=== PATIENT | male | born 1960 | race Caucasian/White ===

== ENCOUNTER 2025-02-27 09:23 | Outpatient (CLI) | payer MEDICARE, BC, SELFPAY ==
--- NOTE | 2025-02-27 09:26 | XR_ITS ---
FINAL REPORT CLINICAL HISTORY: right elbow pain, swelling and pain x 3 weeks, had fluid drained COMPARISON: None FINDINGS: AP, oblique, and lateral views of the right elbow were obtained. There is no prior exam for comparison. There is no acute fracture or dislocation. Advanced degenerative joint disease is identified. There is a joint effusion, with anterior loose bodies. There is soft tissue edema posterior to the olecranon, olecranon bursitis is not excluded. IMPRESSION: No acute osseous abnormality of the right elbow. Advanced degenerative joint disease is present, with a joint effusion and anterior loose bodies. Reviewed, Interpreted and Dictated by Kailey Wood MD Transcribed by Micki Vines Authenticated and . [facility]
== END 2025-02-27 23:59 | disposition home or self-care (01) ==
LOC: RAD 09:26
PROVIDERS: PCP Family Medicine; Visit Provider Physician Assistant Surgical
DX: M19.021 Primary osteoarthritis, right elbow (principal); M25.421 Effusion, right elbow; M24.021 Loose body in right elbow
CPT/HCPCS: 73080

== ENCOUNTER 2025-06-12 14:27 | Outpatient (CLI) | payer MEDICARE, BC, SELFPAY ==
--- OUTSIDE RECORDS SUMMARY | 2025-02-25 06:00 | XMS_ITS ---
Author Organization [facility] Address [address] [facility] [address] [place]ANN[place] [id number] Care Team Providers Care Drying Tunnel Operator Name Role Phone Kush Layne Primary Care Provider KUSH LAYNE Unavailable Unavailable Allergies Allergen (clinical drug ingredient) Drug/Non Drug Allergy documented on EMR Reaction Allergy Type Onset Date Status Substance with sulfonamide structure and antibacterial mechanism of action (substance) Sulfa Antibiotics Unknown Drug Allergy Active Results Component Value Reference Range Notes JJ Reviewed date:02/26/2025 01:39:24 PM Interpretation: Performing Lab: Notes/Report: Reason For Referral Diagnosis 1 Olecranon bursitis o f right elbow (M70.21) [facility] Referring Provider First Name Kush Referring Provider Last Name Roverto Referring Provider Speciality Family Pra ctice Referred Provider Kike Michele Referred Provider Specialty Orthopedic S urgery General Notes Mitali Lucas 2024 01:45:44 PM > at 09:45am; patient informed Referral Priority Routine REASON FOR VISIT establishment Medications Medication SIG (Take, Route, Frequency, Duration) Notes Start Date End Date Status Omeprazole 20 MG 1 capsule 1/2 to 1 h our before morning meal Orally Once a day Active Singulair 10 MG 1 tablet Orally Once a day Active Celecoxib 200 MG 2 Capsules Orally On ce a day Active Ozempic (2 MG/DOSE) 8 MG/3ML 2 mg Subcutaneous weekly Act abdoul Albuterol Sulfate 108 (90 Base) MCG/ACT 1 puff as needed Inhalation every 4 hrs Active LORazepam 0.5 MG 1 tablet at bedtime as needed Orally Once a day 02/25/2025 Active Lisinopril-hydroCHLOROthi azide 20-25 MG 1 tablet Orally Once a day; Duration: 90 days Active DULoxetine HCl 30 MG 2 capsules Orally O nce a day Active Trelegy Ellipta 100-62.5-25 MCG/ACT 1 puff Inhalation Once a day Active Problems Problem Type SNOMED Code ICD Code Onset Dates Problem Status W/U Status Risk Notes Problem Type II diabetes mellitus without complication (057670094) Type 2 diabetes mellitus without complication, without long-term current use of insulin (E11.9) Active confirmed Problem Essential hypertension (65325245) Essential hypertension (I10) Active confirmed Problem Allergic rhinitis (25550322) Chronic allergic rhinitis (J30.9) Active confirmed Problem Anxiety (75269356) Anxiety (F41.9) Active confirmed Problem COPD - Chronic obstructive pulmonary disease (15637835) Chronic obstructive pulmonary disease, unspecified COPD type (J44.9) Active confirmed Vital Signs Weight 217.8 lbs 02/25/2025 Blood pressure systolic 130 mm Hg 02/26/20 25 Blood pressure diastolic 74 mm Hg 025 Heart Rate 72 /min 02/25/2025 Height 72 in 02/25/2025 BMI 29.54 kg/m2 02/25/2025 Encounters Encounter Location Date Provider Diagnosis [facility] [address] [id number] 02/25/2025 Kush Layne Type 2 diabetes skye itus without complication, without long-term current use of insulin E11.9 ; Essential hypertension I10 ; Chronic allergic rhinitis J30.9 ; Anxiety F41.9 ; Polyarthralgia M25.50 ; Chronic obstructive pulmonary disease, unspecified COPD type J44.9 ; Olecranon bursitis of right elbow M70.21 and BMI 29.0-29.9,adult Z68.29 Assessments Encounter Date Diagnosis (ICD Code) Assessment Notes Treatment Notes Treatment Clinical Notes Section Notes 02/25/2025 Type 2 diabetes mellitus without complication, without long-term current use of insulin (ICD-10 - E11.9) 02/25/2025 Essential hypertension (ICD-10 - I10) 02/25/2025 Chronic allergic rhinitis (ICD-10 - J30.9) 02/25/2025 Anxiety (ICD-10 - F41.9) 02/25/2025 Polyarthralgia (ICD-10 - M25.50) 02/25/2025 Chronic obstructive pulmonary disease, unspecified COPD type (ICD-10 - J44.9) 02/25/2025 Olecranon bursitis of right elbow (ICD-10 - M70.21) 02/25/2025 BMI 29.0-29.9,adult (ICD-10 - Z68.29) Plan Of Treatment Medication Medication Name Sig Start Date Stop Date Notes Albuterol Sulfate 108 (90 Base) MCG/ACT 1 puff as needed Inhalation every 4 hrs LORazepam 0.5 MG 1 tablet at bedtime as needed Orally Once a day 02/25/2025 Lisinopril-hydroCHLOROthiazi d e 20-25 MG 1 tablet Orally Once a day; Duration: 90 days LORazepam 1 MG 1 tablet at bedtime as needed Orally Once a day DULoxetine HCl 30 MG 2 capsules Orally Once a day Referrals Referral Date Details 02/25/2025 02/25/2025, Kike Villalpando nt [facility] Appt Details Follow Up: 4 Weeks, Reason: Provider Name:Kush Milan , 06/12/2025 01:45:00 PM, [address], [place], [place], [id number], Procedure Notes * Category Sub-Category Detail Notes Procedure-other Aspiration of Olecranon Bursa Co nsent signed, Betadine prep, 1 % lidocaine local anesthesia, bursa aspirated with # 18 guage needle, 6 mL 's of bloody fluid aspirated, sterile pressure dressing applied Progress Notes * Ramin MIDDLETONDOB:[birth year] (64 yo M)Acc No.[id number]:02/25/2025 Progress Notes Patient: Brooklynn VÁSQUEZYASHIRAFlavioRamin Provider: Guzman Layne M.D. :1960 A ge:64 Y S ex:Male Date:02/25/2025 Address:[address] [place] [address] [address] , [facility] Subjective: * Chief Complaints: * 1 . Establishment. * HPI: H PI: 64 year old male presents with c/o Patient is here today for?Pt here to establish care. Pt was previously seen by Dr. Jayda Blake in [place], [place] . Pt states he has been out of all of his medications for about a week. D ermatology: c/o Swelling P t complains of rt elbow swelling for about 2 weeks. Pt states he and have drained fluid from his elbow twice with a horse needle. * ROS: D ERMATOLOGY: no R bonilla. n o H martha. G ASTROENTEROLOGY: no N ausea. n o V omiting. U ROLOGY: no D ifficulty urinating. n o B lood in urine. * Medical History: A sthma, Hypertension, Allergic Rhinitis, Osteo Arthritis, Hiatal Hernia, Depression, Diverticulitis, Asbestos, Scalp Psoriasis, Hyperlipidemia. * Surgical History: L 4-L5 Fusion 1999, Colon Resection 2000, RT Hip 2022, Bilateral Shoulder Replacement 2023. * Hospitalization/Major Diagno stic Procedure: D ayla Past Hospitalization. * Family History: F ather: , diagnosed with Cancer, Hypertension, Heart Disease. M other: , diagnosed with Cancer, Hypertension, Heart Disease. 3 sister(s) . 1 daughter(s) . . * Social History: C URRENT TOBACCO USE: No . C affeine: yes, frequency: 2 Cups of Coffee Daily. Alcohol: no. * Medications: T aking DULoxetine HCl 30 MG Capsule Delayed Release Particles 1 capsule Orally Once a day , Taking Albuterol Sulfate 108 (90 Base) MCG/ACT Aerosol Powder Breath Activated 1 puff as needed Inhalation every 4 hrs , Taking Trelegy Ellipta 100-62.5-25 MCG/ACT Aerosol Powder Breath Activated 1 puff Inhalation Once a day , Taking LORazepam 1 MG Tablet 1 tablet at bedtime as needed Orally Once a day , Taking Celecoxib 200 MG Capsule 2 Capsules Orally Once a day , Taking Singulair 10 MG Tablet 1 tablet Orally Once a day , Taking Lisinopril-hydroCHLOROthiazide 20-25 MG Tablet 1 tablet Orally Once a day , Taking Ozempic (2 MG/DOSE) 8 MG/3ML Solution Pen-injector 2 mg Subcutaneous weekly , Taking Omeprazole 20 MG Capsule Delayed Release 1 capsule 1/2 to 1 hour before morning meal Orally Once a day , Medication List reviewed and reconciled with the patient * Allergies: S ulfa Antibiotics. Objective: * Vitals: W t: 217.8, Temp: 97.7, BP: 130/74, HR: 72, Nurse: jay jay, Ht: 72, BMI:29.54. * Examination: G eneral Examination: HEENT: u nremarkable. O ral cavity: n o lesions, mucosa moist and WNL, no erythema. N tino: s upple, no lymphadenopathy. H eart: R SR.?Lungs: c lear to auscultation. S kin: n ormal, no rash. P eripheral pulses: normal (2+) bilaterally. E xtremities: n o leg edema, swelling over the right olecranon bursa, no skin redness. P sychology: General Appearance: N AD. G rooming : a dequate.?Eye contact : n ormal. M ood : p leasant. Assessment: * Assessment: 1. T ype 2 diabetes mellitus without complication, without long-term current use of insulin - E11.9 (Primary) 2 . E ssential hypertension - I10 3 . C hronic allergic rhinitis - J30.9 4 . A nxiety - F41.9 5 . P olyarthralgia - M25.50 6 . C hronic obstructive pulmonary disease, unspecified COPD type - J44.9 7 . O lecranon bursitis of right elbow - M70.21 8 .?BMI 29.0-29.9,adult - Z68.29 Plan: * Treatment: 2. A nxiety Increase DULoxetine HCl Capsule Delayed Release Particles, 30 MG, 2 capsules, Orally, Once a day;?Stop LORazepam Tablet, 1 MG, 1 tablet at bedtime as needed, Orally, Once a day; S tart LORazepam Tablet, 0.5 MG, 1 tablet at bedtime as needed, Orally, Once a day, 30, Refills 0. 3. C hronic obstructive pulmonary disease, unspecified COPD type Refill Albuterol Sulfate Aerosol Powder Breath Activated, 108 (90 Base) MCG/ACT, 1 puff as needed, Inhalation, every 4 hrs, 1, Refills 1. 4. O lecranon bursitis of right elbow Referral To:[facility] Reason: * Procedures: P rocedure-other: Aspiration of Olecranon Bursa C onsent signed, Betadine prep, 1 % lidocaine local anesthesia, bursa aspirated with # 18 guage needle, 6 mL 's of bloody fluid aspirated, sterile p ressure dressing applied. * Imaging: * I maging: JJ (Performed Date - 02/26/2025) * Procedure Codes: G 2211 Complex e/m visit add on, DRAIN/INJECT BURSA,HEEL, WRIST, ELBOW ANKLE, OLECRANON BURSA, 1036F TOBACCO NON-USER, G8420 BMI<30 AND >=22 CALC & DOCU, G8950 PREHTN/HTN BP DOC INDCD F/U DOC, G8752 MOST RECENT SYSTOLIC BP < 140MM HG, G8754 MOST RECENT DIASTOLIC BP < 90MM HG * Follow Up: 4 Weeks * Images: Billing Information: * Visit Code: 51511 Office Visit, New Pt., Level 4. Modifiers: 25 * Procedure Codes: G2211 Complex e/m visit add on. DRAIN/INJECT BURSA,HEEL, WRIST, ELBOW ANKLE, OLECRANON BURSA. 1036F TOBACCO NON-USER. G8420 BMI<30 AND >=22 CALC & DOCU. G8950 PREHTN/HTN BP DOC INDCD F/U DOC. G8752 MOST RECENT SYSTOLIC BP < 140MM HG. G8754 MOST RECENT DIASTOLIC BP < 90MM HG. * Electronic signature of Nadia Layne MD on 06/12/2025 at 02:31 PM EST Sign off status: Pending * Provider: Guzman Layne M.D. Date: 0 02/25/2025 Generated for April reilly/Adams/Eneidaitting on: 1 08/12/2024 02:31 PM EST History and Physical Notes * HPI (History of Present Illness) Category Sub-Category Detail Notes Category Not es Dermatology Swelling Pt complains of rt elbow swelling for about 2 weeks. Pt states he and have drained fluid from his elbow twice with a horse needle HPI Patient is here today for Pt her e to establish care. Pt was previously seen by Dr. Jayda Blake in [place], [place] . Pt states he has been out of all of his medications for about a week Examination Category Sub-Category Detail Notes Category Not es General Examination HEENT: unremarkable Heart: RSR Lungs: clear to auscultatio n Extremities: no leg edema, swelli ng over the right olecranon bursa, no skin redness Skin: normal, no rash Neck: supple, no lymphaden opathy Oral cavity: no lesions, mucosa m oist and WNL, no erythema Peripheral pulses: normal (2+) bilatera lly Psychology General Appearance: NAD Grooming : adequate Eye contact : normal Mood : pleasant Consultation Request Notes Referral Date Referring Provider Referred Provider Not es 02/25/2025 Kush Layne Jason
--- OUTSIDE RECORDS SUMMARY | 2025-03-28 05:30 | XMS_ITS ---
Author Organization [facility] Address [address] [facility] [address] [facility] [address] [place] [place] [phone] Care Team Providers Care Data Engineer Name Role Phone Kush Layne Primary Care Provider KUSH LAYNE Unavailable Unavailable Allergies Allergen (clinical drug ingredient) Drug/Non Drug Allergy documented on EMR Reaction Allergy Type Onset Date Status Substance with sulfonamide structure and antibacterial mechanism of action (substance) Sulfa Antibiotics Unknown Drug Allergy Active REASON FOR VISIT 1 month Medications Medication SIG (Take, Route, Frequency, Duration) Notes Start Date End Date Status Singulair 10 MG 1 tablet Orally Once a day Active Celecoxib 200 MG 2 Capsules Orally On ce a day Active Omeprazole 20 MG 1 capsule 1/2 to 1 h our before morning meal Orally Once a day Active Ozempic (2 MG/DOSE) 8 MG/3ML 2 mg Subcutaneous weekly Act abdoul Trelegy Ellipta 100-62.5-25 MCG/ACT 1 puff Inhalation Once a day Active Albuterol Sulfate 108 (90 Base) MCG/ACT 1 puff as needed Inhalation every 4 hrs Active Lisinopril-hydroCHLOROthia zide 20-25 MG 1 tablet Orally Once a day; Duration: 90 days Active Ketoconazole 2 % 5 grams Externally e very other day 03/19/2025 Active LORazepam 0.5 MG 1 tablet at bedtime as needed Orally Once a day 03/28/2025 Active DULoxetine HCl 30 MG 2 capsule Orally On ce a day; Duration: 90 days Active Problems Problem Type SNOMED Code ICD Code Onset Dates Problem Status W/U Status Risk Notes Problem Primary insomnia (5617986) Primary insomnia (F51.01) Active confirmed Vital Signs Weight 220 lbs 03/28/2025 Blood pressure systolic 132 mm Hg 03/28/20 25 Blood pressure diastolic 82 mm Hg 025 Heart Rate 72 /min 03/28/2025 Height 72 in 03/28/2025 BMI 29.83 kg/m2 03/28/2025 Encounters Encounter Location Date Provider Diagnosis [facility] [facility] [address] [facility] [address] [place] [id number] 03/28/2025 Kush Layne Anxiety F41.9 and Primary insomnia F51.01 Assessments Encounter Date Diagnosis (ICD Code) Assessment Notes Treatment Notes Treatment Clinical Notes Section Notes 03/28/2025 Anxiety (ICD-10 - F41.9) 03/28/2025 Primary insomnia (ICD-10 - F51.01) Plan Of Treatment Medication Medication Name Sig Start Date Stop Date Notes LORazepam 0.5 MG 1 tablet at bedtime as needed Orally Once a day 03/28/2025 DULoxetine HCl 30 MG 2 capsule Orally On ce a day; Duration: 90 days Next Appt Details Follow Up: 3 Months, Reason: Provider Name:Kush Milan ry, 06/12/2025 01:45:00 PM, [address], [address], [place], [phone], Progress Notes * Ramin MIDDLETONDOB:[birth year] (64 yo M)Acc No.[id number]:03/28/2025 Progress Notes Patient: Flavio MCKEONory Provider: Guzman Layne M.D. :1960 A ge:64 Y S ex:Male Date:03/28/2025 Address:[address] [place] [address] [address] [facility] Subjective: * Chief Complaints: * 1 . 1 month. * HPI: D ermatology: bug bites P t has a tick bite on left hip he would like to have checked out. . P sychology: c/o Anxiety P t. is here for 4 week follow up. Increased Lorazepam to 1mg for anxiety and increased Duloxetine to 30mg 2 capsules on 02/25. * ROS: D ERMATOLOGY: no R bonilla. [...] 2023. * Hospitalization/Major Diagno stic Procedure: D enies Past Hospitalization. * Family History: F ather: , diagnosed with Cancer, Hypertension, Heart Disease. M other: , diagnosed with Cancer, Hypertension, Heart Disease. 3 sister(s) . 1 daughter(s) . . * Social History: C URRENT TOBACCO USE: No . C affeine: yes, frequency: 2 Cups of Coffee Daily. Alcohol: no. * Medications: T lamg Philliplegy Ellipta 100-62.5-25 MCG/ACT Aerosol Powder Breath Activated 1 puff Inhalation Once a day , Taking Celecoxib 200 MG Capsule 2 Capsules Orally Once a day , Taking Singulair 10 MG Tablet 1 tablet Orally Once a day , Taking Ozempic (2 MG/DOSE) 8 MG/3ML Solution Pen-injector 2 mg Subcutaneous weekly , Taking Omeprazole 20 MG Capsule Delayed Release 1 capsule 1/2 to 1 hour before morning meal Orally Once a day , Taking Albuterol Sulfate 108 (90 Base) MCG/ACT Aerosol Powder Breath Activated 1 puff as needed Inhalation every 4 hrs , Taking DULoxetine HCl 30 MG Capsule Delayed Release Particles 2 capsules Orally Once a day , Taking Lisinopril-hydroCHLOROthiazide 20-25 MG Tablet 1 tablet Orally Once a day , Taking LORazepam 0.5 MG Tablet 1 tablet at bedtime as needed Orally Once a day , Taking Ketoconazole 2 % Shampoo 5 grams Externally every other day , Medication List reviewed and reconciled with the patient * Allergies: S ulfa Antibiotics. Objective: * Vitals: W t: 220, Temp: 97.8, BP: 132/82, HR: 72, Nurse: STANISLAW, Ht: 72, BMI:29.83. * Examination: P sychology: General Appearance: N AD. G rooming : a dequate.?Eye contact : n ormal. M ood : p leasant. Assessment: * Assessment: 1. A nxiety - F41.9 (Primary) 2 . P rimary insomnia - F51.01 ? Plan: * Treatment: 2. P rimary insomnia Refill LORazepam Tablet, 0.5 MG, 1 tablet at bedtime as needed, Orally, Once a day, 30, Refills 2.? * Procedure Codes: G 2211 Complex e/m visit add on, 1036F TOBACCO NON-USER, G8783 BP SCR PRFRM RCMDD DEFIND SCR INTVL, G8752 MOST RECENT SYSTOLIC BP < 140MM HG, G8754 MOST RECENT DIASTOLIC BP < 90MM HG * Follow Up: 3 Months * Images: Billing Information: * Visit Code: 34049 Office Visit, Est Pt., Level 3. * Procedure Codes: G2211 Complex e/m visit add on. 1036F TOBACCO NON-USER. G8783 BP SCR PRFRM RCMDD DEFIND SCR INTVL. G8752 MOST RECENT SYSTOLIC BP < 140MM HG. G8754 MOST RECENT DIASTOLIC BP < 90MM HG. * Electronic signature of Nadia Layne MD on 06/12/2025 at 02:30 PM EST Sign off status: Pending * Provider: Guzman Layne M.D. Date: 0 03/28/2025 Generated for April reilly/Adams/Reid on: 1 08/12/2024 02:30 PM EST History and Physical Notes * HPI (History of Present Illness) Category Sub-Category Detail Notes Category Not es Dermatology bug bites Pt has a tick bi te on left hip he would like to have checked out. Psychology Anxiety Pt. is here for 4 week follow up. Increased Lorazepam to 1mg for anxiety and increased Duloxetine to 30mg 2 capsules on 02/25 Examination Category Sub-Category Detail Notes Category Not es Psychology General Appearance: NAD Grooming : adequate Eye contact : normal Mood : pleasant
--- OUTSIDE RECORDS SUMMARY | 2025-05-01 10:00 | XMS_ITS ---
Author Organization [facility] Address [address] [facility] [address] [place] [id number] Care Team Providers Care Medical Records Supervisor Name Role Phone Doyle Layne Primary Care Provider DOYLE LAYNE Unavailable Unavailable Allergies Allergen (clinical drug ingredient) Drug/Non Drug Allergy documented on EMR Reaction Allergy Type Onset Date Status Substance with sulfonamide structure and antibacterial mechanism of action (substance) Sulfa Antibiotics Unknown Drug Allergy Active REASON FOR VISIT f/u Medications Medication SIG (Take, Route, Frequency, Duration) Notes Start Date End Date Status Ketoconazole 2 % 5 grams Externally e very other day 03/19/2025 Active Lisinopril-hydroCHLOROthia zide 20-25 MG 1 tablet Orally Once a day; Duration: 90 days Active Albuterol Sulfate 108 (90 Base) MCG/ACT 1 puff as needed Inhalation every 4 hrs Active Omeprazole 20 MG 1 capsule 1/2 to 1 h our before morning meal Orally Once a day Active LORazepam 0.5 MG 1 tablet at bedtime as needed Orally Once a day 04/02/2025 Active Ozempic (2 MG/DOSE) 8 MG/3ML 2 mg Subcutaneous weekly Act abdoul Singulair 10 MG 1 tablet Orally Once a day Active Celecoxib 200 MG 2 Capsules Orally On ce a day Active QUEtiapine Fumarate 25 MG 1 or 2 tablets at bedtime Orally Once a day 05/01/2025 Active Trelegy Ellipta 100-62.5-25 MCG/ACT 1 puff Inhalation Once a day Active DULoxetine HCl 30 MG 2 capsule Orally On ce a day Active Vital Signs Weight 210 lbs 05/01/2025 Blood pressure systolic 148 mm Hg 05/01/20 25 Blood pressure diastolic 82 mm Hg 025 Heart Rate 74 /min 05/01/2025 Height 72 in 05/01/2025 BMI 28.48 kg/m2 05/01/2025 Encounters Encounter Location Date Provider Diagnosis [facility] [address] [facility] [address] [facility] [address] [place] [phone] 05/01/2025 Doyle Layne Anxiety F41.9 and Primary insomnia F51.01 Assessments Encounter Date Diagnosis (ICD Code) Assessment Notes Treatment Notes Treatment Clinical Notes Section Notes 05/01/2025 Anxiety (ICD-10 - F41.9) 05/01/2025 Primary insomnia (ICD-10 - F51.01) Plan Of Treatment Medication Medication Name Sig Start Date Stop Date Notes QUEtiapine Fumarate 25 MG 1 or 2 tablets at bedtime Orally Once a day 05/01/2025 DULoxetine HCl 30 MG 2 capsule Orally Once a day Next Appt Details Follow Up: via phone to repo rt progress, Reason: Provider Name:Doyle Milan ry, 06/12/2025 01:45:00 PM, [address] [facility] [address] [facility], [address], [place], [phone], Progress Notes * Ramin MIDDLETONDOB:[birth year] (64 yo M)Acc No.[id number]:05/01/2025 Progress Notes Patient: Ramin MCKEON Provider: Guzman Layne M.D. :1960 A ge:64 Y S ex:Male Date:05/01/2025 Address:[address], [place], [place] Subjective: * Chief Complaints: * 1 . F/u. * HPI: P sychology: 64 year old male presents with c/o stress P t is feeling stressed due to everything going on. Pt states he feels like he is having a panic attack. c/o sleep disturbances d ifficulty falling asleep at night, unable to sleep after waking up. c/o feeling overwhelmed P t states he is a mess pt states he not feeling like himself since medication changes 2 months ago. Pt states he feels lost. c/o Anxiety I ncreased Lorazepam to 1mg for anxiety and increased Duloxetine to 30mg 2 capsules on 02/25. m ore frequently, not sleeping well, feels agitated, recently increased. c/o depression n ot sleeping, feels overwhelmed. * Medical History: A sthma, Hypertension, Allergic [...] 30 MG Capsule Delayed Release Particles 2 capsule Orally Once a day , Taking Trelegy Ellipta 100-62.5-25 MCG/ACT Aerosol [...] needed Inhalation every 4 hrs , Taking Lisinopril-hydroCHLOROthiazide 20-25 MG Tablet 1 tablet Orally Once a day , Taking Ketoconazole 2 % Shampoo 5 grams Externally every other day , Taking LORazepam 0.5 MG Tablet 1 tablet at bedtime as needed Orally Once a day , Medication List reviewed and reconciled with the patient * Allergies: S ulfa Antibiotics. Objective: * Vitals: W t: 210, Temp: 98.1, BP: 148/82, HR: 74, Nurse: SF, Ht: 72, BMI:28.48. * Examination: P sychology: General Appearance: N AD. G rooming : a dequate.?Eye contact : marine mackay. Brooklynn ood : jannie jones. Assessment: * Assessment: 1. A nxiety - F41.9 (Primary) 2 . P rimary insomnia - F51.01 ? Plan: * Treatment: 2. P rimary insomnia Start QUEtiapine Fumarate Tablet, 25 MG, 1 or 2 tablets at bedtime, Orally, Once a day, 45, Refills 1. * Procedure Codes: G 2211 Complex e/m visit add on, 1036F TOBACCO NON-USER * Follow Up: v ia phone to report progress * Images: Billing Information: * Visit Code: 45565 Office Visit, Est Pt., Level 3. * Procedure Codes: G2211 Complex e/m visit add on. 1036F TOBACCO NON-USER. * Electronic signature of Nadia Layne MD on 06/12/2025 at 02:31 PM EST Sign off status: Pending * Provider: Guzman Layne M.D. Date: Generated for April reilly/Adams/eTransmitting on: 08/12/2024 02:31 PM EST History and Physical Notes * HPI (History of Present Illness) Category Sub-Category Detail Notes Category Not es Psychology sleep disturbances difficulty fa lling asleep at night, unable to sleep after waking up stress Pt is feeling stress ed due to everything going on. Pt states he feels like he is having a panic attack feeling overwhelmed Pt states he is a m ess pt states he not feeling like himself since medication changes 2 months ago. Pt states he feels lost Anxiety Increased Lorazepam to 1mg for anxiety and increased Duloxetine to 30mg 2 capsules on 02/25. more frequently, not sleeping well, feels agitated, recently increased depression not sleeping, feels overwhelmed Examination Category Sub-Category Detail Notes Category Not es Psychology General Appearance: NAD Grooming : adequate Eye contact : normal Mood : pleasant
--- OUTSIDE RECORDS SUMMARY | 2025-05-10 06:15 | XMS_ITS ---
Author Organization [facility] Address [address] [facility] [address] [facility] [address] [place] [phone] Care Team Providers Care Stenciling Machine Tender Name Role Phone Doyle Layne Primary Care Provider DOYLE LAYNE Unavailable Unavailable REASON FOR VISIT Follow Up Encounters Encounter Location Date Provider Diagnosis [facility] [address] [place] [phone] 05/10/2025 Doyle Layne Plan Of Treatment Next Appt Details Provider Name:Doyle Milan ry, 06/12/2025 01:45:00 PM, [address], [place], [id number], Progress Notes * Ramin MIDDLETONDOB:[birth year] (64 yo M)Acc No.[id number]:05/10/2025 Progress Notes Patient: Brooklynn CHINGeriRamin Provider: Guzman Layne M.D. :1960 A ge:64 Y S ex:Male Date:05/10/2025 [facility] [facility] [address], [id number] Subjective: * Chief Complaints: * 1 . Follow Up. * Medical History: Objective: * Vitals: Assessment: Plan: * Treatment: * Images: Billing Information: * Visit Code: * Procedure Codes: * Electronic signature of Nadia Layne MD on 06/12/2025 at 02:31 PM EST Sign off status: Pending * Provider: Guzman Layne M.D. Date: Generated for April reilly/Adams/Reid on: 1 08/12/2024 02:31 PM EST
--- OUTSIDE RECORDS SUMMARY | 2025-05-30 06:45 | XMS_ITS ---
[facility] Address [address] [facility] [address] [place] [id number] Care Team Providers Care Ping Pong Table Assembler Name Role Phone Kush Layne Primary Care Provider [phone] KUSH LAYNE Unavailable Unavailable Allergies Allergen (clinical drug ingredient) Drug/Non Drug Allergy documented on EMR Reaction Allergy Type Onset Date Status Substance with sulfonamide structure and antibacterial mechanism of action (substance) Sulfa Antibiotics Unknown Drug Allergy Active Results Component Value Reference Range Notes CBC Fingerstick (in house) Reviewed date:05/30/2025 02:10:27 PM Interpretation: Performing Lab: Notes/Report: wbc 7.5 3.5 - 10 lym 30.8% 15 - 50 mid 7.4% 2 - 15 gran 61.8% 35 - 80 rbc 5.43 3.5 - 5.5 hgb 16.7 11.5 - 16.5 hct 50.1 35 - 55 mcv 92.4 75 - 100 mch 30.7 25 - 35 mchc 33.3 31 - 38 plat 150 100 - 400 REASON FOR VISIT sick Medications Medication SIG (Take, Route, Frequency, Duration) Notes Start Date End Date Status Ketoconazole 2 % 5 grams Externally e very other day 03/19/2025 Active Promethazine-DM 6.25-15 MG/5ML 5 mL as needed Orally every 6 hrs 05/30/2025 Active Ozempic (2 MG/DOSE) 8 MG/3ML 2 mg Subcutaneous weekly Act abdoul Albuterol Sulfate 108 (90 Base) MCG/ACT 1 puff as needed Inhalation every 4 hrs Active Singulair 10 MG 1 tablet Orally Once a day Active Lisinopril-hydroCHLOROthia zide 20-25 MG 1 tablet Orally Once a day; Duration: 90 days Active Zithromax Z-Ángel 250 MG as directed Orall y daily; Duration: 5 days 05/30/2025 Active Trelegy Ellipta 100-62.5-25 MCG/ACT 1 puff Inhalation Once a day Active Omeprazole 20 MG 1 capsule 1/2 to 1 h our before morning meal Orally Once a day; Duration: 90 days Active Celecoxib 200 MG 2 Capsules Orally On ce a day Active DULoxetine HCl 30 MG 2 capsule Orally On ce a day Active Problems Problem Type SNOMED Code ICD Code Onset Dates Problem Status W/U Status Risk Notes Problem Aneurysm of ascending aorta (disorder) (677390660) Aneurysm of ascending aorta without rupture (I71.21) Active confirmed Vital Signs Weight 218 lbs 05/30/2025 Blood pressure systolic 130 mm Hg 05/30/20 25 Blood pressure diastolic 78 mm Hg 025 Heart Rate 72 /min 05/30/2025 Height 72 in 05/30/2025 BMI 29.56 kg/m2 05/30/2025 Encounters Encounter Location Date Provider Diagnosis [facility] [address] [facility] [address] [place], [place] [phone] 05/30/2025 Kush aLyne Acute URI J06.9 and Aneurysm of ascending aorta without rupture I71.21 Assessments Encounter Date Diagnosis (ICD Code) Assessment Notes Treatment Notes Treatment Clinical Notes Section Notes 05/30/2025 Acute URI (ICD-10 - J06.9) 05/30/2025 Aneurysm of ascending aorta without rupture (ICD-10 - I71.21) Plan Of Treatment Medication Medication Name Sig Start Date Stop Date Notes Promethazine-DM 6.25-15 MG/5ML 5 mL as n eeded Orally every 6 hrs 05/30/2025 Zithromax Z-Ángel 250 MG as directed Orall y daily; Duration: 5 days 05/30/2025 Pending Test Test Name Order Date CT Angiogram : Aortic arch 05/30/2025 Next Appt Details Follow Up: via phone to repo rt test results, Reason: Provider Name:Kush bean, 06/12/2025 01:45:00 PM, [address], [address], [place], [place], [phone], Progress Notes * Ramin MIDDLETONDOB:[birth year] (64 yo M)Acc No.[id number]:05/30/2025 Progress Notes Patient: Ramin MCKEON Provider: Guzman Layne M.D. :1960 A ge:64 Y S ex:Male Date:05/30/2025 Address:[address], [place], [id number] Subjective: * Chief Complaints: * 1 . Sick. * HPI: E NT/respiratory: 64 year old male presents with c/o sore throat f eels scratchy, swallowing painful. c/o cough f or 5 days s mall amount of white sputum.? c/o nasal congestion o ff and on. c/o ear pain s topped up. c/o chest congestion o ccasional tightness in chest. c/o body aches aching all over . * ROS: C ONSTITUTIONAL: Positive for d ue to have a CT scan of his ascending aortic aneurysm. * Medical History: A sthma, Hypertension, Allergic Rhinitis, Osteo Arthritis, Hiatal Hernia, Depression, Diverticulitis, Asbestos, Scalp Psoriasis, Hyperlipidemia. * Surgical History: L 4-L5 Fusion 1999, Colon Resection 2000, RT Hip 2022, Bilateral Shoulder Replacement 2023. * Hospitalization/Major Diagno stic Procedure: Celena enies Past Hospitalization. * Family History: F ather: , diagnosed with Cancer, Hypertension, Heart Disease. M other: , diagnosed with Cancer, Hypertension, Heart Disease. 3 sister(s) . 1 daughter(s) . . * Social History: C URRENT TOBACCO USE: No . C affeine: yes, frequency: 2 Cups of Coffee Daily. Alcohol: no. * Medications: T aking Trelegy Ellipta 100-62.5-25 MCG/ACT Aerosol Powder Breath Activated 1 puff Inhalation Once a day , Taking Celecoxib 200 MG Capsule 2 Capsules Orally Once a day , Taking Singulair 10 MG Tablet 1 tablet Orally Once a day , Taking Ozempic (2 MG/DOSE) 8 MG/3ML Solution Pen-injector 2 mg Subcutaneous weekly , Taking Albuterol Sulfate 108 (90 Base) MCG/ACT Aerosol Powder Breath Activated 1 puff as needed Inhalation every 4 hrs , Taking Ketoconazole 2 % Shampoo 5 grams Externally every other day , Taking DULoxetine HCl 30 MG Capsule Delayed Release Particles 2 capsule Orally Once a day , Taking Lisinopril-hydroCHLOROthiazide 20-25 MG Tablet 1 tablet Orally Once a day , Taking Omeprazole 20 MG Capsule Delayed Release 1 capsule 1/2 to 1 hour before morning meal Orally Once a day , Medication List reviewed and reconciled with the patient * Allergies: S ulfa Antibiotics. Objective: * Vitals: W t: 218, Temp: 97.6, BP: 130/78, HR: 72, Nurse: SF, Ht: 72, BMI:29.56. * Examination: E NT/Respiratory: General Appearance: N AD. E yes: P ERRLA, sclera clear. O ral cavity : m inimal erythema without exudate on pharynx. N tino : n o cervical lymphadenopathy. H eart : R RR, normal S1 S2. L ungs: c lear to auscultation bilaterally. Assessment: * Assessment: 1. A cute URI - J06.9 (Primary) 2 . A neurysm of ascending aorta without rupture - I71.21 Plan: * Treatment: Value Reference Range w bc 7.5 3.5 - 10 * l ym 30.8% 15 - 50 * m id 7.4% 2 - 15 * g ran 61.8% 35 - 80 * r bc 5.43 3.5 - 5.5 * h gb 16.7 11.5 - 16.5 * h ct 50.1 35 - 55 * m cv 92.4 75 - 100 * m ch 30.7 25 - 35 * m chc 33.3 31 - 38 * p lat 150 100 - 400 * Elin Fleming 05/30/2025 12 :08:00 PM EDT > Provider reviewed results while patient in office.Kush Layne 05/30/2025 02:10:23 PM EDT > 2.?Aneurysm of ascending aorta without rupture?Imaging: CT Angiogram : Aortic arch* Previously scan done in [place] 05/30/2025 01:19:24 PM EDT > faxed to [facility] Scheduling * Procedure Codes: G 2211 Complex e/[place], [address] CAPILLARY BLOOD DRAW, 72358 CBC WITH AUTO DIFF * Follow Up: v ia phone to report test results * Images: Billing Information: * Visit Code: 76857 Office Visit, Est Pt., Level 3. * Procedure Codes: G2211 Complex e/[place]. [address] CAPILLARY BLOOD DRAW. 89952 CBC WITH AUTO DIFF. * Electronic signature of Nadia Layne MD on 06/12/2025 at 02:31 PM EST Sign off status: Pending * Provider: Guzman Layne M.D. Date: Generated for Frantzi ng/Judyg/eTransmitting on: 08/12/2024 02:31 PM EST History and Physical Notes * HPI (History of Present Illness) Category Sub-Category Detail Notes Category Not es ENT/respiratory sore throat feels scratchy, swallowin g painful ear pain stopped up cough small amount of whit e sputum chest congestion occasional tightness in chest nasal congestion off and on body aches aching all over Examination Category Sub-Category Detail Notes Category Not es ENT/Respiratory Oral cavity : minimal erythema without exudate on pharynx Neck : no cervical lymphade nopathy Heart : RRR, normal S1 S2 Lungs: clear to auscultatio n bilaterally General Appearance: NAD Eyes: PERRLA, sclera clear
--- OUTSIDE RECORDS SUMMARY | 2025-06-10 05:00 | XMS_ITS ---
Author Organization [facility] Address [address] [facility] [address] [place] [phone] Care Team Providers Care Learning And Development Coordinator Name Role Phone Kush Layne Primary Care Provider KUSH LAYNE Unavailable Unavailable Allergies Allergen (clinical drug ingredient) Drug/Non Drug Allergy documented on EMR Reaction Allergy Type Onset Date Status Substance with sulfonamide structure and antibacterial mechanism of action (substance) Sulfa Antibiotics Unknown Drug Allergy Active Results Component Value Reference Range Notes CBC Fingerstick (in house) Reviewed date:06/10/2025 04:27:07 PM Interpretation: Performing Lab: Notes/Report: wbc 8.4 3.5 - 10 lym 20.2 15 - 50 mid 4.7 2 - 15 gran 75.1 35 - 80 rbc 5.09 3.5 - 5.5 hgb 15.6 11.5 - 16.5 hct 47.2 35 - 55 mcv 92.7 75 - 100 mch 30.8 25 - 35 mchc 33.2 31 - 38 plat 164 100 - 400 REASON FOR VISIT poss pneumonia Medications Medication SIG (Take, Route, Frequency, Duration) Notes Start Date End Date Status Omeprazole 20 MG 1 capsule 1/2 to 1 h our before morning meal Orally Once a day; Duration: 90 days Active Lisinopril-hydroCHLOROthia zide 20-25 MG 1 tablet Orally Once a day; Duration: 90 days Active DULoxetine HCl 30 MG 2 capsule Orally On ce a day Active Ketoconazole 2 % 5 grams Externally e very other day 03/19/2025 Active Albuterol Sulfate 108 (90 Base) MCG/ACT 1 puff as needed Inhalation every 4 hrs Active Ozempic (2 MG/DOSE) 8 MG/3ML 2 mg Subcutaneous weekly Act abdoul Singulair 10 MG 1 tablet Orally Once a day Active Celecoxib 200 MG 2 Capsules Orally On ce a day Active Promethazine-DM 6.25-15 MG/5ML 5 mL as needed Orally every 6 hrs 06/10/2025 Active Cefdinir 300 MG 1 cap Orally twice a day; Duration: 7 days 06/10/2025 Active Trelegy Ellipta 100-62.5-25 MCG/ACT 1 puff Inhalation Once a day Active Vital Signs Weight 233 lbs 06/10/2025 Blood pressure systolic 134 mm Hg 06/10/20 25 Blood pressure diastolic 72 mm Hg 025 Heart Rate 80 /min 06/10/2025 Height 72 in 06/10/2025 BMI 31.6 kg/m2 06/10/2025 Encounters Encounter Location Date Provider Diagnosis [facility] [address] [facility] [address] [place] [phone] 06/10/2025 Kush Layne Bronchitis J40 Assessments Encounter Date Diagnosis (ICD Code) Assessment Notes Treatment Notes Treatment Clinical Notes Section Notes 06/10/2025 Bronchitis (ICD-10 - J40) Plan Of Treatment Medication Medication Name Sig Start Date Stop Date Notes Promethazine-DM 6.25-15 MG/5ML 5 mL as n eeded Orally every 6 hrs 06/10/2025 Cefdinir 300 MG 1 cap Orally twice a day; Duration: 7 days 06/10/2025 Next Appt Details Follow Up: via phone to repo rt progress, Reason: Provider Name:Kush Milan ry, 06/12/2025 01:45:00 PM, [address] [facility], [address], [place], [phone], Progress Notes * Ramin MIDDLETONDOB:[birth year] (64 yo M)Acc No.[id number]:06/10/2025 Progress Notes Patient: Brooklynn VÁSQUEZRamin AC Provider: Guzman Layne M.D. :1960 A ge:64 Y S ex:Male Date:06/10/2025 Address:[facility] [place] [address], [place], [id number] Subjective: * Chief Complaints: * 1 . Poss pneumonia. * HPI: E NT/respiratory: 64 year old male presents with c/o sore throat f eels scratchy, swallowing painful. c/o cough u ncontrolable at time with g reenish yellow sputum production. c/o nasal congestion a ll the time. c/o Fever P t states he thinks he had a fever last night but did not check his temp. Pt states he was sweating. c/o ear pain?stopped up. c/o Short of Breath P t states he has shortness of breath and at time it ornelas and he has a funny taste when he swallows, associated with wheezing. Pt states when he lays down at night he feels like he can't breath . c/o chest congestion o ccasional tightness in chest, with production of sputum. c/o dizziness o ff balance. c/o body aches? aching all over . * Medical History: A sthma, Hypertension, Allergic [...] morning meal Orally Once a day , Discontinued Zithromax Z-Ángel 250 MG Tablet as directed Orally daily , Discontinued Promethazine-DM 6.25-15 MG/5ML Syrup 5 mL as needed Orally every 6 hrs , Medication List reviewed and reconciled with the patient * Allergies: S ulfa Antibiotics. Objective: * Vitals: W t: 233, Temp: 98.2, BP: 134/72, HR: 80, O2 Sat: 95% on RA, Nurse: STANISLAW, Ht: 72, BMI:31.6. * Examination: E NT/Respiratory: General Appearance: N AD. E yes: P ERRLA, sclera clear. O ral cavity : m inimal erythema without exudate on pharynx. N tino : n o cervical lymphadenopathy. H eart : R RR, normal S1 S2. L ungs: g ood air movement, coarse breath sounds due to upper airway congestion. Assessment: * Assessment: 1. Guzman padilla - Hoda (Primary) Plan: * Treatment: Value Reference Range w bc 8.4 3.5 - 10 * l ym 20.2 15 - 50 * m id 4.7 2 - 15 * g ran 75.1 35 - 80 * r bc 5.09 3.5 - 5.5 * h gb 15.6 11.5 - 16.5 * h ct 47.2 35 - 55 * m cv 92.7 75 - 100 * m ch 30.8 25 - 35 * m chc 33.2 31 - 38 * p lat 164 100 - 400 * Sherley Levine 06/10/2025 12:10:45 PM EST > Provider reviewed results while patient in office. * Procedure Codes: G 2211 Complex e/[place], [address] CAPILLARY BLOOD DRAW, 82073 CBC WITH AUTO DIFF * Follow Up: v ia phone to report progress * Images: Billing Information: * Visit Code: 42854 Office Visit, Est Pt., Level 3. * Procedure Codes: G2211 Complex e/[place]. [address] CAPILLARY BLOOD DRAW. 17766 CBC WITH AUTO DIFF. * Electronic signature of Nadia Layne MD on 06/12/2025 at 02:31 PM EST Sign off status: Pending * Provider: Guzman Layne M.D. Date: 08/10/2024 Generated for April reilly/Judyg/eTransmitting on: 08/12/2024 02:31 PM EST History and Physical Notes * HPI (History of Present Illness) Category Sub-Category Detail Notes Category Not es ENT/respiratory sore throat feels scratchy, swallowin g painful ear pain stopped up Short of Breath Pt states he has dustin rtness of breath and at time it ornelas and he has a funny taste when he swallows, associated with wheezing. Pt states when he lays down at night he feels like he can't breath cough uncontrolable at javid e with greenish yellow sputum production Fever Pt states he thinks he had a fever last night but did not check his temp. Pt states he was sweating chest congestion occasional tightness in chest, with production of sputum nasal congestion all the time dizziness off balance body aches aching all over Examination Category Sub-Category Detail Notes Category Not es ENT/Respiratory Oral cavity : minimal erythema without exudate on pharynx Neck : no cervical lymphade nopathy Heart : RRR, normal S1 S2 Lungs: good air movement, c oarse breath sounds due to upper airway congestion General Appearance: NAD Eyes: PERRLA, sclera clear
--- OUTSIDE RECORDS SUMMARY | 2025-06-12 14:31 | XMS_ITS | Patient Health Record ---
[facility] [address] [place] [id number] Care Team Providers Care Health Care Facility Administrator Name Role Phone [facility] [...] - 38 plat 164 100 - 400 JJ Reviewed date:02/26/2025 01:39:24 PM Interpretation: Performing Lab: Notes/Report: CBC Fingerstick (in house) Reviewed date:05/30/2025 02:10:27 [...] - 38 plat 150 100 - 400 Reason For Referral Diagnosis 1 Olecranon bursitis o f right elbow (M70.21) Referral Organization [facility] Referring Provider First Name Doyle Referring Provider Last Name Roverto Referring Provider Speciality Family Pra ctice Referred Provider Kike Michele Referred Provider Specialty Orthopedic S urgery General Notes Mitali Lucas 2024 01:45:44 PM > at 09:45am; patient informed Referral Priority Routine Medications Medication SIG (Take, Route, Frequency, Duration) Notes Start Date End Date Status Celecoxib 200 MG 2 Capsules Orally On ce a day Active Singulair 10 MG 1 tablet Orally Once a day Active Ozempic (2 MG/DOSE) 8 MG/3ML 2 mg Subcutaneous weekly Act abdoul Albuterol Sulfate 108 (90 Base) MCG/ACT 1 puff as needed Inhalation every 4 hrs Active Ketoconazole 2 % 5 grams Externally e very other day 03/19/2025 Active DULoxetine HCl 30 MG 2 capsule Orally On ce a day Active Lisinopril-hydroCHLOROthiaz madison 20-25 MG 1 tablet Orally Once a day; Duration: 90 days Active Omeprazole 20 MG 1 capsule 1/2 to 1 h our before morning meal Orally Once a day; Duration: 90 days Active Cefdinir 300 MG 1 cap Orally twice a day; Duration: 7 days 06/10/2025 Active dexAMETHasone 4 MG 1 tablet Orally twic e a day; Duration: 5 days 06/12/2025 Active Promethazine-DM 6.25-15 MG/5ML 5 mL as needed Orally every 6 hrs 06/10/2025 Active Trelegy Ellipta 100-62.5-25 MCG/ACT 1 puff Inhalation Once a day Active Problems Problem Type SNOMED Code ICD Code Onset Dates Problem Status W/U Status Risk Notes Problem Essential hypertension (49264342) Essential hypertension (I10) Active confirmed Problem Anxiety (86110646) Anxiety (F41.9) Active confirmed Problem Acute exacerbation of chronic obstructive airways disease (467794258) COPD exacerbation (J44.1) Active confirmed Problem Primary insomnia (8772109) Primary insomnia (F51.01) Active confirmed Problem COPD - Chronic obstructive pulmonary disease (74883296) Chronic obstructive pulmonary disease, unspecified COPD type (J44.9) Active confirmed Problem Type II diabetes mellitus without complication (918694589) Type 2 diabetes mellitus without complication, without long-term current use of insulin (E11.9) Active confirmed Problem Allergic rhinitis (51440369) Chronic allergic rhinitis (J30.9) Active confirmed Problem Aneurysm of ascending aorta (disorder) (923358644) Aneurysm of ascending aorta without rupture (I71.21) Active confirmed Vital Signs Heart Rate 70 /min 06/12/2025 Blood pressure diastolic 78 mm Hg 06/12/2025 Height 72 in 06/12/2025 Blood pressure systolic 132 mm Hg 06/12/2025 Weight 228 lbs 06/12/2025 BMI 30.92 kg/m2 06/12/2025 Encounters Encounter Location Date Provider Diagnosis [facility] [facility] [address] [place], [place] [id number] 02/25/2025 Doyle [place] Type 2 diabetes skye itus without complication, without long-term current use of insulin E11.9 ; Essential hypertension I10 ; Chronic allergic rhinitis J30.9 ; Anxiety F41.9 ; Polyarthralgia M25.50 ; Chronic obstructive pulmonary disease, unspecified COPD type J44.9 ; Olecranon bursitis of right elbow M70.21 and BMI 29.0-29.9,adult Z68.29 [facility] [address] [place], [place] [id number] 03/28/2025 Doyle [place] Anxiety F41.9 and Pr imary insomnia F51.01 [facility] [address] [place], [place] [id number] 05/01/2025 Doyle [place] Anxiety F41.9 and Pr imary insomnia F51.01 [facility] [address] [place] [id number] 05/30/2025 Doyle [place] Acute URI J06.9 and Aneurysm of ascending aorta without rupture I71.21 [facility] [address] [place], [place] [id number] 06/10/2025 Doyle [place] Bronchitis J40 [facility] [address] [place] [id number] 06/12/2025 Doyle [place] COPD exacerbation J4 4.1 [facility] [address] [place] [id number] 03/05/2025 Doyle [place] [facility] [address] [place] [id number] 03/15/2025 Doyle [place] [facility] [address] [place] [id number] 04/02/2025 Doyle [place] Primary insomnia F51 .01 [facility] [address] [place] [id number] 04/30/2025 Doyle [place] Primary insomnia F51 .01 [facility] [address] [place], [place] [id number] 05/09/2025 Doyle [place] Primary insomnia F51 .01 and Anxiety F41.9 [facility] [address] [place], [place] [id number] 05/27/2025 Doyle [place] Essential hypertensi on I10 Assessments Encounter Date Diagnosis (ICD Code) Assessment Notes Treatment Notes Treatment Clinical Notes Section Notes 02/25/2025 Essential hypertension (ICD-10 - I10) 03/28/2025 Anxiety (ICD-10 - F41.9) 03/28/2025 Primary insomnia (ICD-10 - F51.01) 04/02/2025 Primary insomnia (ICD-10 - F51.01) 04/30/2025 Primary insomnia (ICD-10 - F51.01) 05/01/2025 Anxiety (ICD-10 - F41.9) 05/01/2025 Primary insomnia (ICD-10 - F51.01) 05/09/2025 Primary insomnia (ICD-10 - F51.01) 05/27/2025 Essential hypertension (ICD-10 - I10) 05/30/2025 Acute URI (ICD-10 - J06.9) 05/30/2025 Aneurysm of ascending aorta without rupture (ICD-10 - I71.21) 06/10/2025 Bronchitis (ICD-10 - J40) 06/12/2025 COPD exacerbation (ICD-10 - J44.1) 02/25/2025 Type 2 diabetes mellitus without complication, without long-term current use of insulin (ICD-10 - E11.9) 02/25/2025 Chronic allergic rhinitis (ICD-10 - J30.9) 05/09/2025 Anxiety (ICD-10 - F41.9) 02/25/2025 Anxiety (ICD-10 - F41.9) 02/25/2025 Polyarthralgia (ICD-10 - M25.50) 02/25/2025 Chronic obstructive pulmonary disease, unspecified COPD type (ICD-10 - J44.9) 02/25/2025 Olecranon bursitis of right elbow (ICD-10 - M70.21) 02/25/2025 BMI 29.0-29.9,adult (ICD-10 - Z68.29) Plan Of Treatment Pending Test Test Name Order Date CXR 06/12/2025 CT Angiogram : Aortic arch 05/30/2025 Next Appt Details Provider Name:Doyle Mlian ry, 06/12/2025 01:45:00 PM, [address], [place], [place], [id number], Insurance Providers Payer Name Payer Address Payer Phone Subscriber Number Group Number Insured Name Patient Relationship to Insured Coverage Start Date Coverage End Date MEDICARE PART B [address] [address] [place] [id number] Ramin Middleton Self - patient is the insured [facility] [address] [place] [address] [id number] Ramin Middleton Self - patient is the insured Medical (General) History Medical History History ICD Code Asthma Hypertension Allergic Rhinitis Osteo Arthritis Hiatal Hernia Depression Diverticulitis Asbestos Scalp Psoriasis hyperlipidemia Surgical History Surgery Date(Month/Year) L4-L5 Fusion 1999 Colon Resection 2000 RT Hip 2022 Bilateral Shoulder Replacement 2023
--- NOTE | 2025-06-12 14:33 | XR_ITS ---
FINAL REPORT TECHNIQUE: 2 view chest CLINICAL HISTORY: COPD EXACERBATION sick for 3 weeks..rule out pneumonia COMPARISON: None FINDINGS: CHEST 2 VIEWS Changes of emphysema are present. There is evidence of calcified granulomatous disease. A 16 mm left perihilar nodule is present, not clearly calcified. There is no evidence of effusion or other pleural disease. The mediastinum has a normal appearance. The cardiac silhouette is unremarkable. IMPRESSION: 1. Changes of emphysema. 2. 16 mm left perihilar nodule, not clearly calcified. Correlation with chest CT is recommended for further evaluation. Reviewed, Interpreted and Dictated by Bossman Jeffries MD Transcribed by Micki Vines Authenticated and [facility]
[2025-06-12 15:06] LABS: Blood Urea Nitrogen 22 mg/dl (9-20); Creatinine,Serum 0.80 mg/dl (0.66-1.25); Estimated Glomerular Filt Rate 97 ml/min (>60); GFR (African American) 117 ML/MIN (>60)
== END 2025-06-12 23:59 | disposition home or self-care (01) ==
LOC: RAD 14:29
PROVIDERS: PCP Family Medicine; Visit Provider Family Medicine
DX: J44.1 Chronic obstructive pulmonary disease with (acute) exacerbation (principal); J43.9 Emphysema, unspecified; R91.1 Solitary pulmonary nodule
CPT/HCPCS: 36415; 71046; 82565; 84520

== ENCOUNTER 2025-06-13 13:58 | Outpatient (CLI) | payer MEDICARE, BC, SELFPAY ==
--- NOTE | 2025-06-13 14:06 | CT_ITS ---
FINAL REPORT TECHNIQUE: Thin section axial CT with contrast with multiplanar reconstruction This study was performed with techniques to keep radiation doses as low as reasonably achievable, (ALARA). Individualized dose reduction techniques using automated exposure control or adjustment of mA and/or kV according to the patient's size were employed. 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 The mid ascending aorta is mildly enlarged, measuring 40 mm in diameter. The descending aorta is at the upper limits of normal measuring up to 28 mm in diameter. No pulmonary mass or infiltrate is present. There are numerous calcified pleural plaques, more prominent on the left than on the right, which may be secondary to asbestos exposure or prior infection. No pleural effusion is identified. There is no significant pericardial effusion. No mediastinal or hilar adenopathy is present. IMPRESSION: 1. Mild fusiform aneurysm of the ascending aorta. Reviewed, Interpreted and Dictated by Bossman Jeffries MD Transcribed by Micki Vines Authenticated and . [facility]
[2025-06-13] MEDS: SODIUM CHLORIDE 0.9% 10ML SYR (RAD ONLY) 10 ML IV (14:43)
[2025-06-13] MEDS: 0.9 % SODIUM CHLORIDE 50 ML VIAL IV (14:43)
[2025-06-13] MEDS: IOPAMIDOL-370 (76%);100ML BOTTLE 80 ML IV (14:43)
== END 2025-06-13 23:59 | disposition home or self-care (01) ==
LOC: RAD 13:59
PROVIDERS: PCP Family Medicine; Visit Provider Family Medicine
DX: I71.21 Aneurysm of the ascending aorta, without rupture (principal)
CPT/HCPCS: 71275; Q9967